=== PATIENT | female | born 1960 | race Caucasian/White ===

== ENCOUNTER 2018-10-23 12:41 | Day surgery (SDC) | payer MEDICAID ==
[2018-10-23] VITALS (13 sets, daily range): BP systolic 117–157; BP diastolic 67–94
[~2018-10-23] VITALS: Ht 154.9 cm; Wt 68.2 kg
[2018-10-23] MEDS ORDERED: fentaNYL/PF 50MCG/1 ML 2ML syringe ONE (12:57)
[2018-10-23] MEDS ORDERED: NO HOME MEDS (12:58)
[2018-10-23] MEDS ORDERED: glucagon, human recombinant 1mg kit ONE ×2 (12:58)
[2018-10-23] MEDS ORDERED: LIDOcaine Viscous 15ml cup ONE (12:58)
[2018-10-23] MEDS ORDERED: diphenhydrAMINE 50 mg/ml inj ONE (12:58)
[2018-10-23] MEDS ORDERED: MIDAZolam 5mg/5ml vial ONE (12:58)
[2018-10-23] MEDS ORDERED: iohexol 300 MG/1 ML 50ml polymer ONE (12:59)
== END 2018-10-23 15:54 | disposition home or self-care (01) ==
LOC: GI LAB 12:41
PROVIDERS: ATTEND Internal Medicine Gastroenterology
DX: Z46.59 Encounter for fitting and adjustment of other gastrointestinal appliance and device (principal)
CPT/HCPCS: 43264; 74328; 99152; C1769; J1200; J1610; J2250; J3010; J7040; Q9967; 99153; A4620

== ENCOUNTER 2019-09-16 09:23 | Emergency (ER) | payer MEDICAID ==
[~2019-09-16] VITALS: Ht 154.9 cm; Wt 70.3 kg
[~2019-09-16 09:23] MED LIST: NO HOME MEDS
[2019-09-16] MEDS ORDERED: amox tr/potassium clavulanate 875/125mg TAB PO ONE (09:40)
[2019-09-16] MEDS ORDERED: dexamethasone 4mg tablet PO ONE (09:40)
[2019-09-16] MEDS ORDERED: AMOX-580 PO (09:49)
[2019-09-16 10:05] VITALS: BP 159/91
== END 2019-09-16 10:07 | disposition home or self-care (01) ==
LOC: ER 09:23
DX: K04.7 Periapical abscess without sinus (principal); R22.0 Localized swelling, mass and lump, head; R50.9 Fever, unspecified; Z88.2 Allergy status to sulfonamides; Z88.8 Allergy status to other drugs, medicaments and biological substances; Z79.2 Long term (current) use of antibiotics
CPT/HCPCS: 99283